=== PATIENT | female | born 1990 ===

== ENCOUNTER 2016-08-14 16:58 | Emergency (ER) | payer OTHER ==
[2016-08-14 16:58] VITALS: BMI 25.0
[2016-08-14 17:09] VITALS: RESP 20; TEMP 98.1
[2016-08-14 17:55] LABS: RBC URINE 2 /hpf (0-3); URINE BILIRUBIN NEGATIVE (NEGATIVE); URINE BLOOD NEGATIVE (NEGATIVE); URINE COLOR Yellow (YELLOW); URINE GLUCOSE (UA) NORMAL (Normal); URINE KETONE NEGATIVE (NEGATIVE); URINE LEUKOCYTE ESTERASE NEGATIVE Leu/uL (Negative); URINE PROTEIN NEGATIVE (NEGATIVE); URINE UROBILINOGEN NORMAL mg/dL (0.2-1.0); WBC URINE 1 /hpf (0-5)
--- NOTE | 2016-08-14 18:55 | C.PDOC ---
History Of Present Illness <Loida Alvarez - Last Filed: 08/14/16 19:28> <Aldo Navarro - Last Filed: 08/14/16 21:29> 26 y/o female c/o intermittent abdominal pain over the last week, getting worse , with nausea and vomiting, (last yesterday), with black stool today. pt not taking pepto bismol. pt denies fever and chills. no prior episodes. (Loida Alvarez) <Loida Alvarez - Last Filed: 08/14/16 19:28> <Aldo Navarro - Last Filed: 08/14/16 21:29> Time Seen by Provider: 08/14/16 18:21 Chief Complaint (Nursing): Abdominal Pain Past Medical History Reviewed: Historical Data, Nursing Documentation, Vital Signs - Medical History PMH: No Chronic Diseases Surgical History: No Surg Hx Family History: States: Unknown Family Hx - Social History Hx Tobacco Use: No Hx Alcohol Use: No Hx Substance Use: No - Immunization History Hx Tetanus Toxoid Vaccination: No Hx Influenza Vaccination: No Hx Pneumococcal Vaccination: No <Loida Alvarez - Last Filed: 08/14/16 19:28> Vital Signs: Last Vital Signs Temp 98.1 F 08/14/16 17:08 Pulse 90 08/14/16 17:08 Resp 20 08/14/16 17:08 BP 126/81 08/14/16 17:08 Pulse Ox 100 08/14/16 19:29 Review Of Systems Constitutional: Negative for: Fever, Chills Cardiovascular: Negative for: Chest Pain, Palpitations Respiratory: Negative for: Cough, Shortness of Breath Gastrointestinal: Positive for: Nausea, Vomiting, Abdominal Pain, Diarrhea Genitourinary: Negative for: Dysuria, Frequency Neurological: Negative for: Weakness, Numbness <Loida Alvarez - Last Filed: 08/14/16 19:28> Physical Exam - Physical Exam Appears: Non-toxic, No Acute Distress Skin: Normal Color, Warm, Dry Head: Atraumatic, Normacephalic Nose: Normal Chest: Symmetrical, No Deformity, No Tenderness Cardiovascular: Rhythm Regular, No Murmur Respiratory: Normal Breath Sounds, No Rales, No Rhonchi, No Wheezing Gastrointestinal/Abdominal: Bowel Sounds, Soft, Tenderness (left side upper and lower abdomen), No Distention, No Guarding, No Rebound Rectal: Normal Exam, Rectal Tone, No Tenderness Neurological/Psych: Oriented x3, Normal Speech, Normal Motor, Normal Sensation <Loida Alvarez - Last Filed: 08/14/16 19:28> ED Course And Treatment O2 Sat by Pulse Oximetry: 100 <Loida Alvarez - Last Filed: 08/14/16 19:28> - Laboratory Results Result Diagrams: 08/14/16 20:11 08/14/16 20:11 Lab Interpretation: No Acute Changes Urine POC: Negative Progress Note: Pt was signed out to me at 7pm by ERICA Alvarez/Dr. Brock to f/up labs. Pt feels much better and wants to go home. Reassessment Condition: Improved <Aldo Navarro E - Last Filed: 08/14/16 21:29> Medical Decision Making <Loida Alvarez - Last Filed: 08/14/16 19:28> <Aldo Navarro E - Last Filed: 08/14/16 21:29> Medical Decision Makin y.o female with n,v, abdominal pain, soft stool , now black today -[place], labs, ua upreg uvf pepcid zofrn and re-assess (Loida Alvarez) Disposition - Disposition Disposition Time: 19:29 <Loida Alvarez - Last Filed: 08/14/16 19:28> Counseled Patient/Family Regarding: Studies Performed, Diagnosis, Need For Followup, Rx Given - Disposition Disposition Time: 21:27 <Aldo Navarro - Last Filed: 08/14/16 21:29> - Disposition Referrals: [facility] at [facility] [Outside] Disposition: HOME/ ROUTINE Condition: IMPROVED Additional Instructions: Follow up with your doctor or in the clinic within 1 week for further evaluation and treatment. Return to the ER if you develop fever, vomiting, bleeding, worsening of symptoms or if you have any other concerns. Prescriptions: Famotidine [Pepcid] 20 mg PO BID #30 tab Metoclopramide [Reglan] 1 tab PO TID PRN #15 tab PRN Reason: Nausea/Vomiting Instructions: Gastritis (ED) - Clinical Impression Clinical Impression: Abdominal pain Physician Patient Turnover Patient Signed Over To: Aldo Navarro Handoff Comments: f/u labs and re-assess <Loida Alvarez - Last Filed: 08/14/16 19:28>
[2016-08-14] MEDS ORDERED: Sodium Chloride 0.9% 1,000 ML IV ONE (19:02)
[2016-08-14 20:14] LABS: BASO # 0.1 K/uL (0.0-0.2); BASO % 0.9 % (0.0-2.0); EOS # 0.4 K/uL (0.0-0.7); EOS % 5.6 % (0.0-4.0); HEMATOCRIT 35.1 % (34.0-47.0); LYMPH # 2.3 K/uL (1.0-4.3); MEAN CELL VOLUME 80.9 fL (81.0-99.0); MEAN CORPUSCULAR HEMOGLOBIN 25.9 pg (27.0-31.0); MEAN PLATELET VOLUME 9.4 fL (7.2-11.7); MONO # 0.7 K/uL (0.0-0.8); MONO % 9.9 % (0.0-10.0); RED CELL DISTRIBUTION WIDTH 14.5 % (11.5-14.5); WHITE BLOOD COUNT 7.4 K/uL (4.8-10.8)
[2016-08-14 20:21] LABS: CHLORIDE 98 mmol/L (98-107); SODIUM 137 mmol/L (132-148)
[2016-08-14 20:22] LABS: POTASSIUM 3.9 mmol/L (3.6-5.2)
[2016-08-14 20:23] LABS: GFR AFRICAN-AMERICAN > 60
[2016-08-14 20:24] LABS: ALB/GLOB RATIO 1.2 (1.0-2.1); ALKALINE PHOSPHATASE 43 U/L (38-126); ALT/SGPT 36 U/L (9-52); AST/SGOT 28 U/L (14-36); BILIRUBIN,TOTAL 0.2 mg/dL (0.2-1.3); BLOOD UREA NITROGEN 9 mg/dL (7-17); CARBON DIOXIDE 25 mmol/L (22-30); GLUCOSE,RANDOM 67 mg/dL (65-105); TOTAL PROTEIN 7.3 g/dL (6.3-8.3)
[2016-08-14 21:50] VITALS: BP 128/78; PULSE 92; O2SAT 97
== END 2016-08-14 21:49 | disposition home or self-care (01) ==
LOC: C.ER 16:58
DX: R10.12 Left upper quadrant pain (principal); R10.32 Left lower quadrant pain
CPT/HCPCS: 80053; 81001; 83690; 84703; 85025; 96374; 96375; 99285; G0328; J2405; J2765; J7040

== ENCOUNTER 2018-05-08 15:03 | Emergency (ER) | payer SELFPAY ==
[2018-05-08 15:04] VITALS: BMI 25.0
[2018-05-08 15:16] VITALS: BP 147/76; PULSE 67; RESP 18; TEMP 98.4; O2SAT 100
--- NOTE | 2018-05-08 15:58 | C.PDOC ---
History Of Present Illness 28 y/o female presents to ED complaining of intermittent sore throat x1 month, as well as nasal congestion for the same amount of time. Patient denies purulent yellow discharge, fever, or cough. Patient has no medical problems. Time Seen by Provider: 05/08/18 15:19 Chief Complaint (Nursing): ENT Problem History Per: Patient History/Exam Limitations: None Onset/Duration Of Symptoms: Days Current Symptoms Are (Timing): Still Present Past Medical History Reviewed: Historical Data, Nursing Documentation, Vital Signs Vital Signs: Last Vital Signs Temp 98.4 F 05/08/18 15:14 Pulse 67 05/08/18 15:14 Resp 18 05/08/18 15:14 BP 147/76 05/08/18 15:14 Pulse Ox 100 05/08/18 15:14 Family History: States: No Known Family Hx - Social History Hx Tobacco Use: No Hx Alcohol Use: No Hx Substance Use: No - Immunization History Hx Tetanus Toxoid Vaccination: No Hx Influenza Vaccination: No Hx Pneumococcal Vaccination: No Review Of Systems Constitutional: Negative for: Fever ENT: Positive for: Nose Congestion, Throat Pain. Negative for: Nose Discharge Respiratory: Negative for: Cough Physical Exam - Physical Exam Appears: Non-toxic, No Acute Distress Skin: Warm, Dry Head: Atraumatic, Normacephalic Eye(s): bilateral: Normal Inspection, PERRL, EOMI Ear(s): Bilateral: Normal Nose: Discharge (clear), No Tenderness (to palpation over frontal or maxillary sinuses), Other (erythematous and swollen nasal turbinates) Oral Mucosa: Moist Throat: Normal Neck: Supple Chest: Symmetrical Cardiovascular: Rhythm Regular, No Murmur Respiratory: Normal Breath Sounds, No Rales, No Rhonchi, No Wheezing Extremity: Bilateral: Atraumatic, Normal Color And Temperature, Normal ROM Neurological/Psych: Oriented x3, Normal Speech ED Course And Treatment O2 Sat by Pulse Oximetry: 100 (RA) Pulse Ox Interpretation: Normal Progress Note: Patient was given sudafed. Disposition Counseled Patient/Family Regarding: Diagnosis, Need For Followup, Rx Given - Disposition Referrals: [facility] at [facility] [Outside] Kennedy Crabtree MD [Staff Provider] - Disposition: HOME/ ROUTINE Disposition Time: 16:00 Condition: STABLE Additional Instructions: FOLLOW UP WITH YOUR DOCTOR OR CLINIC IN 1-2 DAYS USE MEDICATION NEEDED RETURN TO ER IF SYMPTOMS WORSEN IF SYMPTOMS PERSIST, FOLLOW UP WITH ENT SPECIALIST WITHIN 1 WEEK Prescriptions: Pseudoephedrine [Sudafed] 60 mg PO Q6 PRN #12 tab PRN Reason: Nasal Congestion Forms: [facility] (Bengali), General Discharge Instructions, Gen Discharge Inst Divehi Print Language: [place]UWAITI - Clinical Impression Clinical Impression: Sinus congestion - Scribe Statement The provider has reviewed the documentation as recorded by the Ushaibdom Garber Provider Attestation: All medical record entries made by the Desi were at my direction and personally dictated by me. I have reviewed the chart and agree that the record accurately reflects my personal performance of the history, physical exam, medical decision making, and the department course for this patient. I have also personally directed, reviewed, and agree with the discharge instructions and disposition.
== END 2018-05-08 16:03 | disposition home or self-care (01) ==
LOC: C.ER 15:03
DX: R09.81 Nasal congestion (principal)